=== PATIENT | male | born 1980 | race Two or more races ===

== ENCOUNTER 2020-01-20 07:00 | Inpatient (IN) | payer OTHER ==
[~2020-01-20] VITALS: Ht 175.3 cm; Wt 131.1 kg
[2020-03-29] VITALS (13 sets, daily range): BP systolic 125–152; BP diastolic 74–98
[2020-03-29] MEDS ORDERED: AMLODIPINE BESYL5 MG ORAL (06:15)
[2020-03-29] MEDS ORDERED: PHENYTOIN SODI100 MG ORAL (06:15)
[2020-03-29] MEDS ORDERED: IBUPROFEN600 M1 ORAL (06:16)
[2020-03-29] MEDS ORDERED: Thrombin 5000 units spray kit TOPIC ONE (06:45)
[2020-03-29] MEDS ORDERED: Gelfoam Absorbable 1gm powder pkt TOPIC ONE (06:46)
[2020-03-29] MEDS ORDERED: Bacitracin 50000 Units Vial ONE (06:46)
[2020-03-29] MEDS ORDERED: Bupivacaine w/Epi 0.5% 30ml Vial INJ ONE (06:46)
[2020-03-29] MEDS ORDERED: Gelfoam Size TOPIC ONE (06:46)
[2020-03-29] MEDS ORDERED: Thrombin 5000 units TOPIC ONE (06:46)
[2020-03-29] MEDS ORDERED: Succinylcholine 20mg/ml 10ml vial ONE (07:03)
[2020-03-29] MEDS ORDERED: Rocuronium Bromide 100mg/10ml Inj IV ONE ×2 (07:03→09:39)
[2020-03-29] MEDS ORDERED: Lidocaine 1% MPF 10mg/ml 5ml ONE (07:10)
[2020-03-29] MEDS ORDERED: fentaNYL 100 mcg/2 mL IV ONE (07:10)
[2020-03-29] MEDS ORDERED: Midazolam 2mg/2ml Inj ONE (07:10)
--- NOTE | 2020-03-29 07:28 | Pre-Procedure Note/Attestation ---
Pre-Procedure Note/Attestation Complete Prior to Procedure Planned Procedure: left Procedure Narrative: L4/5 and L5/S1 microdecompression Indications for Procedure Pre-Operative Diagnosis: L4/5 and L5/S1 HNP Attestation I attest that I discussed the nature of the procedure; its benefits; risks and complications; and alternatives (and the risks and benefits of such alternatives ), prior to the procedure, with the patient (or the patient's legal chemical sales representative). I attest that, if there was a reasonable possibility of needing a blood transfusion, the patient (or the patient's legal chemical sales representative) was given the [facility] standardized written summary, pursuant to the Selvin Maria G Blood Safety Act ([place] Health and Safety Code # 1645, as amended). I attest that I re-evaluated the patient just prior to the surgery and that there has been no change in the patient's H&P, except as documented below: Ian Ruby Mar 29, 2020 07:28
[2020-03-29] MEDS ORDERED: NS Irrig 1000ml ONE (07:30)
[2020-03-29] MEDS ORDERED: Sterile Water Irrig 1000ml IRRIG ONE (07:30)
[2020-03-29] MEDS ORDERED: LR 1000ml ONE (07:30)
[2020-03-29] MEDS ORDERED: Morphine Sulfate 10mg/ml Inj ONE (08:38)
[2020-03-29] MEDS ORDERED: Metoprolol Tartrate 5mg/5ml Inj ONE (08:38)
[2020-03-29] MEDS ORDERED: Sodium Chloride 10ml vial INJ ONE (08:39)
[2020-03-29] MEDS ORDERED: Ketorolac 30mg Inj ONE (08:39)
[2020-03-29] MEDS ORDERED: Neostigmine 1mg/ml 10ml Inj ONE (08:39)
[2020-03-29] MEDS ORDERED: Glycopyrrolate 0.2mg/ml 1ml Vial ONE (08:39)
--- NOTE | 2020-03-29 08:56 | Anethesia Preoperative Eval ---
Anesthesia Pre-op PMH/ROS General Date of Evaluation: Mar 29, 2020 Time of Evaluation: 07:10 Anesthesiologist: Alice ASA Score: ASA 3 Mallampati Score Class I : Soft palate, uvula, fauces, pillars visible Class II: Soft palate, uvula, fauces visible Class III: Soft palate, base of uvula visible Class IV: Only hard plate visible Mallampati Classification: Class III Surgeon: Amy Diagnosis: Lumbar radiculopathy Surgical Procedure: L4 to S1 laminotomy Anesthesia History: none Social History: current smoker Family History: no anesthesia problems Allergies: Coded Allergies: No Known Allergies (Unverified , 03/29/20) Medications: see eMAR Patient NPO?: Yes Past Medical History Cardiovascular: Reports: HTN - stable; Denies: CAD, [place], valve dz, arrhythmia, other Pulmonary: Reports: SUSAN; Denies: asthma, COPD, other Gastrointestinal/Genitourinary: Reports: GERD; Denies: CRI, ESRD, other Neurologic/Psychiatric: Reports: other - chronic pain,h/o seizers; Denies: dementia, CVA, depression/anxiety, TIA Endocrine: Denies: DM, hypothyroidism, steroids, other HEENT: Denies: cataract (L), cataract (R), glaucoma, [place] other Hematology/Immune: Denies: anemia, DVT, bleeding disorder, other Musculoskeletal/Integumentary: Denies: OA, RA, DJD, DDD, edema, other Other: obesity PMH Narrative: as above PSxH Narrative: ACDF appendectomy Anesthesia Pre-op Phys. Exam Physician Exam Last Vital Signs Date Time Temp Pulse Resp B/P (MAP) Pulse Ox O2 Delivery O2 Flow Rate FiO2 03/29/20 06:33 97.8 74 20 138/97 (111) 100 03/29/20 06:18 Room Air Constitutional: NAD Neurologic: CN 2-12 intact Cardiovascular: RRR, no M/R/G Respiratory: CTA Gastrointestinal: other - obesity Airway Exam Mallampati Score: Class III MO: full Neck: short ROM: limited Teeth: missing Dentures: no upper, no lower Anesthesia Pre-op A/P Labs see chart Studies Pre-op Studies: EKG - NSR Risk Assessment & Plan Assessment: ASA 3 Plan: GA with ETT, prone position Status Change Before Surgery: No Pre-Antibiotics Drug: Ancef 2gr Given Within 1 Hr of Incision: Yes Time Given: 08:10 Chivo Jenkins MD Mar 29, 2020 08:56
[2020-03-29] MEDS ORDERED: Acetaminophen (Non formulary) 100 ML IV ONE (09:00)
--- NOTE | 2020-03-29 10:01 | Diagnostic Imaging Report ---
INDICATION: Pain, intraoperative TECHNIQUE: Intraoperative imaging Fluoroscopy time: 7.9 seconds Total dose: 0.68196 mGym2 Total number of images: 2 COMPARISON: None FINDINGS: Intraoperative images initially demonstrate a marker projected over what is presumably the L4-5 disc. Subsequent images demonstrate surgical tool projected posterior to L5-S1 and a retractor posterior to L5 IMPRESSION: Intraoperative imaging, as described
--- NOTE | 2020-03-29 10:36 | Brief Operative Note ---
Immediate Post Operative Note Operative Note Chief Complaint: Low back pain Pre-op Diagnosis: L4/5 and L5/S1 HNP Procedure: Left L4/5 and L5/S1 lumbar microdecompression Post-op Diagnosis: L4/5 and L5/S1 HNP Post-op Diagnosis: same as pre-op Surgeon: Dr. Reyes Pinked Edge Sewing Machine Operator: Ian Ruby Jr. Anesthesiologist: Dr. Jenkins Anesthesia: general Specimen: none Complications: none Condition: stable Fluids: NS Estimated Blood Loss: minimal Drains: hemovac Implant(s) used?: Ian Kaiser Mar 29, 2020 10:36
[2020-03-29] MEDS ORDERED: Milk of Magnesia 30ml Ud ORAL PRN (10:45)
[2020-03-29] MEDS ORDERED: Metoclopramide 10mg/2ml Inj IVP PRN (10:45)
[2020-03-29] MEDS ORDERED: LR 1000ml 1,000 ML IVLG SCH (10:53)
--- NOTE | 2020-03-29 10:57 | Immediate Post-Op Evaluation ---
Immediate Post-Op Evalulation Immediate Post-Op Evalulation Procedure: L4 toS1 laminotomy with discectomy and decompressioon Date of Evaluation: Mar 29, 2020 Time of Evaluation: 10:56 IV Fluids: 1500 Blood Products: none Estimated Blood Loss: 150 Urinary Output: 200 Blood Pressure Systolic: 129 Blood Pressure Diastolic: 78 Pulse Rate: 86 Respiratory Rate: 22 O2 Sat by Pulse Oximetry: 98 Temperature (Fahrenheit): 98.2 Pain Score (1-10): 2 Nausea: No Vomiting: No Complications none Patient Status: reacts, patent, extubated, none Hydration Status: adequate Chivo Jenkins MD Mar 29, 2020 10:57
[2020-03-29] MEDS ORDERED: Meperidine 25mg/0.5ml Inj (FOR RIGORS ONLY) IV PRN (11:00)
[2020-03-29] MEDS ORDERED: Midazolam 2mg/2ml Inj IVP PRN (11:00)
[2020-03-29] MEDS ORDERED: Hydromorphone 0.5mg/0.5ml inj IVP PRN (11:00)
[2020-03-29] MEDS ORDERED: Ketorolac 30mg Inj IV PRN (11:00)
[2020-03-29] MEDS ORDERED: DiphenhydrAMINE 50mg/ml Inj IVP PRN (11:00)
--- NOTE | 2020-03-29 11:05 | General Progress Note ---
Assessment/Plan Assessment/Plan: L4/5 and L5/S1 HNP Left L4/5 and L5/S1 lumbar microdecompression Lumbar disc disease PLAN 1. incentive spirometry 2. SCD 3. PT evaluation and therapy 4. Hydration 5. Pain management 6. discharge once stable with outpatient follow up Subjective Allergies: Coded Allergies: No Known Allergies (Unverified , 03/29/20) Subjective asked to follow postop Objective Last 24 Hour Vital Signs Date Time Temp Pulse Resp B/P (MAP) Pulse Ox O2 Delivery O2 Flow Rate FiO2 03/29/20 10:57 86 22 98 03/29/20 10:54 92 16 129/80 99 Simple Mask 6 03/29/20 10:49 89 15 127/85 98 Simple Mask 6 03/29/20 10:44 98.1 101 30 150/83 97 Simple Mask 6 03/29/20 06:33 97.8 74 20 138/97 (111) 100 03/29/20 06:18 Room Air Intake and Output 03/28/20 03/29/20 19:00 07:00 # Voids 1 Height (Feet): 5 Height (Inches): 9.00 Weight (Pounds): 268 Objective WDWN NAD clear breath sounds bilaterally without rhonchi or wheeze [id number] without MRG NABS nontender no HSM no CCE nonfocal Sina Squires MD Mar 29, 2020 11:05
[2020-03-29] MEDS: NS w/KCl 20mEq 1000ml 1,000 ML IV SCH ×2 (13:53→23:07)
[2020-03-29] MEDS: ceFAZolin sod 1 GM in D5W 55 ML IV SCH ×2 (17:31→23:07)
[2020-03-29] MEDS: Docusate 100mg cap ORAL SCH (17:41)
[2020-03-29] MEDS: HYDROmorphone 1mg/ml Carpuject IVP PRN ×3 (17:43→23:14)
[2020-03-29] MEDS: HYDROcodone/Acetamin 10/325 tab ORAL PRN (19:54)
--- NOTE | 2020-03-29 23:00 | Operative Note - Dictated ---
DATE OF OPERATION: 03/29/2020 PREOPERATIVE DIAGNOSES: Traumatic spondyloarthropathy, L4-L5 and L5-S1, symptomatic left-sided L4-L5 and L5-S1 radiculopathy. POSTOPERATIVE DIAGNOSES: Traumatic spondyloarthropathy, L4-L5 and L5-S1, symptomatic left-sided L4-L5 and L5-S1 radiculopathy. PROCEDURE PERFORMED: 1. Left hemilaminotomy, medial partial facetectomy, and microdecompression, L4-L5 and L5-S1. 2. Modifier 22 applied, as the patient's body habitus is high and the depth of the wound is significant. The complexity factor is applied. Every step of the surgery is difficult due to the patient's large body habitus in positioning, intubation, exposure, retraction, and microdecompression. Risk of complications are higher from the surgery. SURGEON: Mckay Reyes MD. CONDUCTOR/ENGINEER: Tung Sosa, physician's judicial administrative assistant. ANESTHESIOLOGIST: Chivo Jenkins MD. ANESTHESIA: General endotracheal combined anesthetic. ESTIMATED BLOOD LOSS: Minimal. INDICATION FOR PROCEDURE: This is a pleasant gentleman with a cervical and lumbar injury. The patient was indicated for surgery. He has already had C-spine procedure with improvement and some residual symptomatology. The patient had persistent left-sided clinical lumbar radiculopathy. He was indicated for surgery. MRIs demonstrate corroborating findings with significant subjective complaints. The risks and benefits as well as alternatives were discussed. No guarantees of outcomes were given. The patient was indicated for surgery. Preop medical clearance was completed and he was medically optimized. PROCEDURE IN DETAIL: On the day of surgery, the patient was taken to the operating room, intubated by the anesthesiologist, appropriately positioned prone onto the Charlie table with all bony prominences well padded. Due to the patient's significantly high BMI, the spine lift team was necessary as the patient's body habitus is very large and he was safely positioned onto the Charlie multi-padded table and the patient's chest board was repositioned and hip pads were applied. Bony prominences were well padded. Once a localizing x-ray was taken, the markings were made on the lumbodorsal region. Levels were identified and back was prepped and draped in usual sterile fashion. Antibiotics were delivered and surgical pause was undertaken. Subsequently, left-sided approach was undertaken and the patient's depth of the wound was enlarged and he had significant depth through this incision. Once the L4-L5 and L5-S1 interlaminar space was identified on the left side, the facet joint was protected. The localizing x-ray was taken. Subsequently, the microscope was pulled into view and exposure was accomplished by long retractors with large crank retractors. Once the crank retractors were applied and exposure was completed, the microscope was used for optimal visualization. Patient's spine was several inches deep. Drill was used to perform a laminotomy at L4 and L5 and medial partial facetectomy. Subsequently, the ligamentum flavum was released and removed using micro curettes and instruments. Foraminotomy was created and decompressed lateral recess at L5-S1, mobilized, and retracted to L4-L5 and in similar fashion, decompressed at L4-L5. The patient had significant lipomatosis as visualized on the MRI. The patient had stenotic lateral recess and disk protrusion was also noted. After decompression, the disk protrusion was no longer compressive and was copiously irrigated after hemostasis was obtained. A drain was applied and there was no CSF leakage. Once the wound was copiously irrigated and after drain application, the fascia was reapproximated with #1 Vicryl, 2-0 Vicryl for the dermis, and 3-0 Monocryl for skin. COMPLICATIONS: None. DISPOSITION: To recovery in stable condition after dressings were applied sterilely and the patient was repositioned supine with the spine lift team. Mckay Reyes M.D. DR: JEREMIAS JOB#: [id number] CC: PARK
[2020-03-30] VITALS: BP 153/96
[2020-03-30] MEDS: HYDROmorphone 1mg/ml Carpuject IVP PRN ×5 (02:20→19:49)
[2020-03-30] MEDS: HYDROcodone/Acetamin 10/325 tab ORAL PRN ×5 (03:27→23:29)
[2020-03-30 04:00] VITALS: BP 157/93
[2020-03-30 08:00] VITALS: BP 166/107
[2020-03-30] MEDS: NS w/KCl 20mEq 1000ml 1,000 ML IV SCH ×2 (08:20→19:48)
[2020-03-30] MEDS: Docusate 100mg cap ORAL SCH ×2 (08:20→17:32)
[2020-03-30] MEDS: ceFAZolin sod 1 GM in D5W 55 ML IV SCH (08:20)
[2020-03-30] MEDS: HYDROcodone/Acetamin 5/325 tab ORAL PRN (11:40)
[2020-03-30 12:00] VITALS: BP 150/102
--- NOTE | 2020-03-30 12:57 | General Progress Note ---
Assessment/Plan Assessment/Plan: L4/5 and L5/S1 HNP Left L4/5 and L5/S1 lumbar microdecompression Lumbar disc disease PLAN 1. incentive spirometry 2. SCD 3. PT evaluation and therapy 4. Hydration 5. Pain management 6. discharge once stable with outpatient follow up Subjective Allergies: Coded Allergies: No Known Allergies (Unverified , 03/29/20) Subjective care noted having pain after PT Objective Last 24 Hour Vital Signs Date Time Temp Pulse Resp B/P (MAP) Pulse Ox O2 Delivery O2 Flow Rate FiO2 03/30/20 08:50 98.3 03/30/20 08:50 98.3 03/30/20 08:00 97.3 80 18 166/107 (126) 99 03/30/20 04:00 98.3 72 21 157/93 (114) 99 03/30/20 00:00 97.9 75 21 153/96 (115) 99 03/29/20 21:00 Nasal Cannula 3.0 03/29/20 20:00 97.6 80 21 152/98 (116) 03/29/20 16:34 99 Nasal Cannula 2.0 28 03/29/20 16:00 97.2 63 20 148/91 (110) 03/29/20 13:26 97.2 75 20 125/74 (91) Intake and Output 03/29/20 03/30/20 19:00 07:00 Intake Total 2100 ml 1105 ml Output Total 760 ml 1300 ml Balance 1340 ml -195 ml Intake IV Total 2100 ml 1105 ml Output Urine Total 600 ml 1300 ml Drainage Total 10 ml Estimated Blood Loss 150 ml # Voids 1 Height (Feet): 5 Height (Inches): 9.00 Weight (Pounds): 289 Objective WDWN NAD clear breath sounds bilaterally without rhonchi or wheeze [id number] without MRG NABS nontender no HSM no CCE nonfocal Sina Squires MD Mar 30, 2020 12:57
[2020-03-30 16:00] VITALS: BP 121/65
[2020-03-30] MEDS: Phenytoin 100mg cap ORAL SCH ×2 (17:32→21:12)
[2020-03-30 20:00] VITALS: BP 156/103
[2020-03-30] MEDS ORDERED: Phenytoin 100mg cap ORAL SCH (22:00)
[2020-03-31] VITALS (7 sets, daily range): BP systolic 147–173; BP diastolic 100–120
[2020-03-31] MEDS: HYDROmorphone 1mg/ml Carpuject IVP PRN ×8 (00:32→23:22)
[2020-03-31] MEDS: Phenytoin 100mg cap ORAL SCH ×3 (05:58→21:44)
[2020-03-31] MEDS: NS w/KCl 20mEq 1000ml 1,000 ML IV SCH ×2 (05:59→14:56)
[2020-03-31] MEDS: HYDROcodone/Acetamin 5/325 tab ORAL PRN (06:30)
--- NOTE | 2020-03-31 08:22 | 48 Hour Post Anesthesia Eval ---
Post Anesthesia Evaluation Procedure: L4 toS1 laminotomy with discectomy and decompressioon Date of Evaluation: Mar 31, 2020 Time of Evaluation: 06:31 Blood Pressure Systolic: 173 0: 112 Pulse Rate: 94 Respiratory Rate: 20 Temperature (Fahrenheit): 97.3 O2 Sat by Pulse Oximetry: 97 Airway: patent Nausea: No Vomiting: No Pain Intensity: 3 Hydration Status: adequate Cardiopulmonary Status: Stable Mental Status/LOC: patient returned to baseline Follow-up Care/Observations: 0 Post-Anesthesia Complications: 0 Follow-up care needed: N/A Delano Allen MD Mar 31, 2020 08:22
[2020-03-31] MEDS: Docusate 100mg cap ORAL SCH ×2 (08:28→17:18)
--- NOTE | 2020-03-31 08:44 | General Progress Note ---
Assessment/Plan Assessment/Plan: L4/5 and L5/S1 HNP Left L4/5 and L5/S1 lumbar microdecompression Lumbar disc disease PLAN 1. incentive spirometry 2. SCD 3. PT evaluation and therapy 4. Hydration 5. Pain management 6. discharge planning Subjective Allergies: Coded Allergies: No Known Allergies (Unverified , 03/29/20) Subjective care noted reduced pain Objective Last 24 Hour Vital Signs Date Time Temp Pulse Resp B/P (MAP) Pulse Ox O2 Delivery O2 Flow Rate FiO2 03/31/20 08:28 103 153/103 03/31/20 08:22 94 20 97 03/31/20 06:30 173/112 03/31/20 04:00 97.3 94 20 173/112 (132) 97 03/31/20 00:00 98.6 87 20 161/109 (126) 91 03/30/20 21:00 Room Air 03/30/20 20:00 99.5 86 19 156/103 (120) 97 03/30/20 17:36 97 118/83 03/30/20 16:00 98.8 74 18 121/65 (83) 97 03/30/20 15:10 98.3 03/30/20 15:10 98.3 03/30/20 12:10 98.3 03/30/20 12:00 97.5 79 20 150/102 (118) 98 03/30/20 09:00 Room Air Intake and Output 03/30/20 03/31/20 19:00 07:00 Intake Total 800 ml Output Total 650 ml 2000 ml Balance 150 ml -2000 ml Intake Oral 800 ml Output Urine Total 600 ml 2000 ml Drainage Total 50 ml Height (Feet): 5 Height (Inches): 9.00 Weight (Pounds): 289 Objective WDWN NAD clear breath sounds bilaterally without rhonchi or wheeze [id number] without MRG NABS nontender no HSM no CCE nonfocal Sina Squires MD Mar 31, 2020 08:44
[2020-04-01] VITALS: BP 161/115
[2020-04-01] MEDS: NS w/KCl 20mEq 1000ml 1,000 ML IV SCH ×2 (01:40→10:20)
[2020-04-01] MEDS: HYDROcodone/Acetamin 10/325 tab ORAL PRN ×3 (01:41→12:02)
[2020-04-01 04:00] VITALS: BP 159/102
[2020-04-01] MEDS: Phenytoin 100mg cap ORAL SCH ×2 (05:52→14:10)
[2020-04-01 08:00] VITALS: BP 150/98
[2020-04-01] MEDS: Docusate 100mg cap ORAL SCH (08:14)
[2020-04-01 08:19] VITALS: BP 150/98
--- NOTE | 2020-04-01 08:45 | General Progress Note ---
Assessment/Plan Assessment/Plan: L4/5 and L5/S1 HNP Left L4/5 and L5/S1 lumbar microdecompression Lumbar disc disease PLAN 1. incentive spirometry 2. SCD 3. PT evaluation and therapy 4. Hydration 5. Pain management 6. discharge home Subjective Allergies: Coded Allergies: No Known Allergies (Unverified , 03/29/20) Subjective care noted d/w surgery Objective Last 24 Hour Vital Signs Date Time Temp Pulse Resp B/P (MAP) Pulse Ox O2 Delivery O2 Flow Rate FiO2 04/01/20 08:19 97.3 93 21 150/98 (115) 97 04/01/20 08:14 93 150/98 04/01/20 08:00 97.3 93 21 150/98 (115) 97 04/01/20 06:02 159/102 04/01/20 04:00 98.2 96 20 159/102 (121) 98 04/01/20 01:41 161/115 04/01/20 00:00 97.3 104 20 161/115 (130) 98 03/31/20 21:43 171/120 03/31/20 21:00 Room Air 03/31/20 20:00 98.6 112 20 171/120 (137) 99 03/31/20 19:00 100 Room Air 21 03/31/20 18:36 97.9 111 21 154/102 (119) 99 03/31/20 17:51 98.7 03/31/20 16:19 167/117 03/31/20 16:00 98.7 106 21 167/117 (134) 98 03/31/20 12:00 98.4 100 21 147/100 (116) 100 03/31/20 09:00 Room Air Intake and Output 03/31/20 04/01/20 19:00 07:00 Intake Total 1100 ml 1100 ml Output Total 1150 ml 600 ml Balance -50 ml 500 ml IV Total 1100 ml 1100 ml Output Urine Total 1150 ml 600 ml Laboratory Tests 04/01/20 05:35: Phenytoin (Dilantin) Level 2.7L Height (Feet): 5 Height (Inches): 9.00 Weight (Pounds): 289 Objective WDWN NAD clear breath sounds bilaterally without rhonchi or wheeze [id number] without MRG NABS nontender no HSM no CCE nonfocal Sina Squires MD Apr 01, 2020 08:45
[2020-04-01] MEDS ORDERED: NORCO 5-325 TA1 EAC1 ORAL (09:25)
[2020-04-01 12:07] VITALS: BP 158/91
[2020-04-01 16:00] VITALS: BP 119/73
--- NOTE | 2020-04-03 16:32 | Discharge Summary ---
Discharge Summary Discharge Summary _ DATE OF ADMISSION: 03/29/2020 DATE OF DISCHARGE: 04/01/2020 DISCHARGED BY: Dr. Calli Squires SURGEON: Dr. Mckay Reyes BRIEF HOSPITAL COURSE: Patient is a 39-year-old male, with cervical and lumbar injury. He had already undergone a C-spine procedure with improvement and some residual symptomatology. The patient had persistent left-sided clinical lumbar radiculopathy. He was indicated for surgery. He was admitted on 03/29/2020 and underwent left hemilaminotomy, medial partial facetectomy and microdecompression L4-L5 and L5-S1. He tolerated procedure well. Surgery was uneventful. Post-operatively, patient was admitted for post-op care. He was placed on SCDs for DVT prophylaxis and was encouraged use of incentive spirometer. Patient was given pain management. He was continued on home medications. He was seen by PT. Diet was advanced. Incision was clean, dry and intact. Patient was ambulating well with good pain control and was tolerating diet. Patient was eventually cleared for discharge home. He was discharged with the DMEs. FINAL DIAGNOSES: Traumatic spondyloarthropathy, L4-L5 and L5-S1, symptomatic left-sided L4-L5 and L5-S1 radiculopathy. PROCEDURE PERFORMED: 1. Left hemilaminotomy, medial partial facetectomy, and microdecompression, L4-L5 and L5-S1. 2. Modifier 22 applied, as the patient's body habitus is high and the depth of the wound is significant. The complexity factor is applied. Every step of the surgery is difficult due to the patient's large body habitus in positioning, intubation, exposure, retraction, and microdecompression. Risk of complications are higher from the surgery. (Refer to Operative Report) DISCHARGE DISPOSITION: Patient was discharged home. DISCHARGE MEDICATIONS: Refer to Medication Reconciliation Sheet. DISCHARGE INSTRUCTIONS: Post-op instructions given. Follow-up in a week. I have been assigned to complete a DC summary on this account, I was not involved with the patient's management.--VANESSA Rios Jacqueline Robles NP Apr 03, 2020 16:32
--- NOTE | 2020-04-11 15:11 | Diagnostic Imaging Report ---
INDICATION: Pain, intraoperative TECHNIQUE: Intraoperative imaging Fluoroscopy time: 7.9 seconds Total dose: 0.81219 mGym2 Total number of images: 2 COMPARISON: None FINDINGS: Intraoperative images initially demonstrate a marker projected over what is presumably the L4-5 disc. Subsequent images demonstrate surgical tool projected posterior to L5-S1 and a retractor posterior to L5 IMPRESSION: Intraoperative imaging, as described
== END 2020-04-01 16:15 | disposition home or self-care (01) | DRG 517 ==
LOC: SDSOVERFLO 03-29 05:36 → 3E 03-29 12:00
PROC: 01NB0ZZ Release Lumbar Nerve, Open Approach (ICD-10-PCS; principal; 2020-03-29 07:30)
PROC: 01NR0ZZ Release Sacral Nerve, Open Approach (ICD-10-PCS; principal; 2020-03-29 07:30)
DX: M51.16 Intervertebral disc disorders with radiculopathy, lumbar region (principal); M47.26 Other spondylosis with radiculopathy, lumbar region; M47.27 Other spondylosis with radiculopathy, lumbosacral region; M51.27 Other intervertebral disc displacement, lumbosacral region; F17.200 Nicotine dependence, unspecified, uncomplicated; V89.2XXS Person injured in unspecified motor-vehicle accident, traffic, sequela; Y93.55 Activity, bike riding
CPT/HCPCS: 36415; 72020; 76000; 80185; 82962; 87081; 94003; 94150; J2250; J2405; J2710